=== PATIENT | male | born 1990 | race Caucasian/White ===

== ENCOUNTER 2022-01-20 19:31 | Emergency (ER) | payer BC ==
[~2022-01-20] VITALS: Ht 165.1 cm; Wt 77.3 kg
[2022-01-20 19:34] VITALS: TEMP 98
[2022-01-20 20:08] LABS: BASO # 0.1 K/mm3 (0.0-0.2); BASO % 0.8 % (0.0-2.0); EOS # 0.1 K/mm3 (0.0-0.7); EOS % 0.6 % (0.0-4.0); GRAN # 6.3 K/mm3 (1.4-6.5); GRAN % 69.6 % (42.2-75.2); HEMATOCRIT 51.6 % (42.0-52.0); LYMPH # 2.1 K/mm3 (1.2-3.4); LYMPH % 23.3 % (20.0-51.0); MEAN CELL VOLUME 85 fl (80.0-100.0); MEAN CORPUSCULAR HEMOGLOBIN 30 pg (27-31); MEAN CORPUSCULAR HGB CONC 35 g/dl (33.0-37.0); MEAN PLATELET VOLUME 11.1 fl (7.4-10.4); MONO # 0.5 K/mm3 (0.1-0.6); MONO % 5.5 % (1.7-9.3); PLATELET COUNT 264 K/mm3 (130-400); RED BLOOD COUNT 6.11 M/mm3 (4.20-5.60); REDCELL DISTRIBUTION WIDTH-CV 12.3 % (11.5-14.5)
[2022-01-20 20:09] LABS: HEMOGLOBIN 18.1 g/dl (13.5-18.0)
[2022-01-20 20:26] LABS: ALBUMIN 4.6 gm/dL (3.5-5.0); BILIRUBIN,TOTAL 0.8 mg/dL (0.2-1.2); CALCIUM 9.8 mg/dL (8.4-10.2); CREATININE, serum 1.36 mg/dL (0.72-1.25); POTASSIUM 3.5 mmol/L (3.5-4.5); TOTAL PROTEIN 8.3 gm/dL (6.2-8.1)
[2022-01-20 21:13] VITALS: PULSE 99
[2022-01-20] MEDS ORDERED: PRINIVIL10 MG PO (21:37)
[2022-01-20 21:50] VITALS: BP 151/100
== END 2022-01-20 21:50 | disposition home or self-care (01) ==
LOC: COL.ER 19:31
PROVIDERS: Family Medicine
DX: I10 Essential (primary) hypertension (principal)